=== PATIENT | male | born 1965 | race Caucasian/White ===

== ENCOUNTER 2019-02-24 12:06 | Emergency (ER) | payer BC ==
[2019-02-24 12:33] VITALS: BP 163/97
[2019-02-24] MEDS ORDERED: Diazepam 5 MG Tab PO ONE ×2 (12:40→13:50)
[2019-02-24] MEDS ORDERED: Meclizine 25 MG Tab PO ONE (12:40)
--- NOTE | 2019-02-24 12:46 | EDM.PDOC ---
ED HPI GENERAL MEDICAL PROBLEM - General Chief Complaint: Gastrointestinal Problem Stated Complaint: DIZZINESS/VOMITING Time Seen by Provider: 02/24/19 12:30 Source of Information: Reports: Patient, RN History Limitations: Reports: No Limitations - History of Present Illness INITIAL COMMENTS - FREE TEXT/NARRATIVE: 53 yo male presents with vertigo associated with head position that began last night. If he lies still his sx's eventually go away, but resume mainly if he looks to the left. No diarrhea, fever, or bleeding. Had something similar, but less severe or prolonged once in the past. Onset: Sudden Onset Date: 02/23/19 Duration: Hour(s):, Waxing/Waning Location: Reports: Head (vertigo) Quality: Reports: Other (no pain) Severity: Moderate Improves with: Reports: Rest (maintaining head position) Worsens with: Reports: Other (looking to the left) Context: Reports: Other (see HPI) Associated Symptoms: Reports: Nausea/Vomiting. Denies: Fever/Chills, Headaches , Syncope Treatments DRIP BOX TENDER: Reports: Other (see below) (none) - Related Data Allergies Allergy/AdvReac Type Severity Reaction Status Date / Time Penicillins Allergy Unknown Other Verified 02/24/19 12:11 Home Meds: Home Meds Aspirin [Children's Aspirin] 81 mg PO DAILY 10/03/16 [History] Lisinopril 20 mg PO DAILY 10/03/16 [History] Ranitidine [Zantac] 150 mg PO BID 10/03/16 [History] Losartan Potassium 50 mg PO DAILY 02/24/19 [History] Omeprazole 20 mg PO DAILY 02/24/19 [History] Past Medical History HEENT History: Reports: Hard of Hearing, Impaired Vision Cardiovascular History: Reports: Hypertension Gastrointestinal History: Reports: GERD Musculoskeletal History: Reports: Fracture, Osteoarthritis Other Musculoskeletal History: right hand Endocrine/Metabolic History: Reports: Obesity/BMI 30+ - Infectious Disease History Infectious Disease History: Reports: Chicken Pox - Past Surgical History HEENT Surgical History: Reports: Tonsillectomy Cardiovascular Surgical History: Reports: None GI Surgical History: Reports: None Endocrine Surgical History: Reports: None Musculoskeletal Surgical History: Reports: None Social & Family History - Tobacco Use Smoking Status *Q: Former Smoker Years of Tobacco use: 5 Packs/Tins Daily: 0.5 Used Tobacco, but Quit: Yes Month/Year Tobacco Last Used: 25 years ago Second Hand Smoke Exposure: No - Caffeine Use Caffeine Use: Reports: Coffee, Tea Other Caffeine Use: 1 cup coffee and 12 oz tea daily - Alcohol Use Days Per Week of Alcohol Use: 2 Number of Drinks Per Day: 1 Total Drinks Per Week: 2 - Recreational Drug Use Recreational Drug Use: No ED ROS GENERAL - Review of Systems Review Of Systems: See Below Constitutional: Reports: No Symptoms HEENT: Reports: No Symptoms Respiratory: Reports: No Symptoms Cardiovascular: Reports: No Symptoms Endocrine: Reports: No Symptoms GI/Abdominal: Reports: Nausea, Vomiting. Denies: Diarrhea : Reports: No Symptoms Musculoskeletal: Reports: No Symptoms Skin: Reports: No Symptoms Neurological: Reports: Dizziness, Difficulty Walking. Denies: Confusion, Headache, Trouble Speaking ED EXAM, DIZZINESS - Physical Exam Exam: See Below Exam Limited By: No Limitations General Appearance: Alert, WD/WN, No Apparent Distress Eye Exam: Bilateral Eye: EOMI, Normal Inspection, PERRL Nystagmus: worsens with head to L Ears: Normal External Exam, Normal Canal, Hearing Grossly Normal, Normal TMs Nose: Normal Inspection, No Blood Throat/Mouth: Normal Inspection, Normal Lips, Normal Oropharynx, Normal Voice, No Airway Compromise Head Exam: Atraumatic, Normocephalic Neck: Normal Inspection Respiratory/Chest: No Respiratory Distress, Lungs Clear, Normal Breath Sounds, No Accessory Muscle Use Cardiovascular: Regular Rate, Rhythm, No Edema GI/Abdominal: Normal Bowel Sounds, Soft, Non-Tender, No Distention Neurological: Alert, Normal Mood/Affect, CN II-XII Intact, No Motor/Sensory Deficits, Oriented x 3 Back Exam: Normal Inspection Extremities: Normal Inspection Psychiatric: Normal Affect, Normal Mood Skin Exam: Warm, Dry, Intact, Normal Color, No Rash Course - Vital Signs Text/Narrative:: Some better after tx, will refer to PT for next available appt(tomorrow) for Aura maneuvers/education. Last Recorded V/S: Last Vital Signs Temp 36.3 C 02/24/19 12:10 Pulse 74 02/24/19 12:10 Resp 14 02/24/19 12:10 BP 163/97 H 02/24/19 12:10 Pulse Ox 94 L 02/24/19 12:10 - Orders/Labs/Meds Meds: Medications Discontinued Medications Generic Name Dose Route Start Last Admin Trade Name Freq PRN Reason Stop Dose Admin Diazepam 5 mg 02/24/19 12:40 02/24/19 12:52 Valium. PO 02/24/19 12:41 5 mg ONETIME ONE Administration Meclizine HCl 25 mg 02/24/19 12:40 02/24/19 12:52 Antivert PO 02/24/19 12:41 25 mg ONETIME ONE Administration Departure - Departure Time of Disposition: 13:30 Disposition: Home, Self-Care 01 Condition: Fair Clinical Impression: BPV (benign positional vertigo) Qualifiers: Laterality: unspecified laterality Qualified Code(s): H81.10 - Benign paroxysmal vertigo, unspecified ear - Discharge Information *PRESCRIPTION DRUG MONITORING PROGRAM REVIEWED*: No *COPY OF PRESCRIPTION DRUG MONITORING REPORT IN PATIENT PROMISE: No Instructions: Benign Positional Vertigo Referrals: Antwan Langston NP [Primary Care Provider] - Forms: ED Department Discharge Additional Instructions: Take meclizine and if needed diazepam to reduce nausea/vertigo. No driving today. Follow up with physical therapy tomorrow.
[2019-02-24] MEDS ORDERED: Ondansetron 4 MG Tab.DIS PO ONE (13:50)
== END 2019-02-24 15:17 | disposition home or self-care (01) ==
LOC: JP.ED 12:06
DX: H81.10 Benign paroxysmal vertigo, unspecified ear (principal); I10 Essential (primary) hypertension; K21.9 Gastro-esophageal reflux disease without esophagitis; Z87.891 Personal history of nicotine dependence; Z88.0 Allergy status to penicillin; Z79.82 Long term (current) use of aspirin; Z79.899 Other long term (current) drug therapy
CPT/HCPCS: 99283; A9270